=== PATIENT | female | born 1995 | race Caucasian/White ===

== ENCOUNTER 2017-11-29 12:53 | Outpatient (CLI) | payer OTHER ==
--- NOTE | 2017-11-29 14:35 | CT ---
CT BRAIN WITHOUT CONTRAST: Indication: 22-year-old female head pressure and pain in the back of the head with dizziness. Patient reportedly had a fall down some stairs landing on the back of her head. Comparison: None. FINDINGS: No definite acute infarct, hemorrhage, or hydrocephalus is present. The septum pellucidum and third v entricle are midline. No depressed or displaced skull fracture is evident. The mastoid air cells are clear. Visualized paranasal sinuses are clear. IMPRESSION: No acute intracranial abnormality. POS: [facility]
== END 2017-11-29 12:54 | disposition home or self-care (01) ==
LOC: SCSCT 12:53
DX: S09.90XA Unspecified injury of head, initial encounter (principal)
CPT/HCPCS: 70450